=== PATIENT | male | born 1975 | race Caucasian/White ===

== ENCOUNTER 2019-02-26 20:33 | Emergency (ER) | payer BC ==
--- NOTE | 2019-02-26 21:19 | ED ---
Nausea/Vomiting/Diarrhea HPI - General Chief complaint: Nausea/Vomiting/Diarrhea Stated complaint: liver problems Time Seen by Provider: 02/26/19 21:17 Source: patient Mode of arrival: ambulatory Limitations: no limitations - History of Present Illness Initial comments: Nima is a 43 -year-old male with a history of arthritis who presents to the emergency department today for evaluation of generalized body aches abdominal pain nausea and vomiting. Patient reports that he saw his primary care physician a couple of weeks ago and was advised that his liver enzymes were elevated and he needed to stop taking Tylenol and Motrin, he was then referred to rheumatology. He was evaluated by rheumatology last week, reports he had multiple vials of blood drawn for multiple tests, was given steroid injections in both his hands and feet and a short course of oral steroids. He reports he felt better transiently but has developed persistent body aches, nausea and vomiting. He became concerned due to his previously elevated liver enzymes came to the ER for evaluation. Patient denies any fevers chills chest pain or shortness of breath. - Related Data Home Medications Medication Instructions Recorded Confirmed ALPRAZolam [Xanax] 0.5 mg PO DAILY PRN 02/26/19 02/26/19 Celecoxib [CeleBREX] 200 mg PO DAILY 02/26/19 02/26/19 Pantoprazole [Protonix] 40 mg PO BID 02/26/19 02/26/19 Previous Rx's Medication Instructions Recorded Ondansetron [Zofran ODT] 4 mg PO Q8HR #12 tab 02/26/19 Allergies Allergy/AdvReac Type Severity Reaction Status Date / Time No Known Allergies Allergy Verified 02/26/19 21:27 Review of Systems ROS Statement: Those systems with pertinent positive or pertinent negative responses have been documented in the HPI. ROS Other: All systems not noted in ROS Statement are negative. Past Medical History Past Medical History: Hyperlipidemia, Hypertension Additional Past Medical History / Comment(s): Diverticulits History of Any Multi-Drug Resistant Organisms: None Reported Past Surgical History: Orthopedic Surgery Past Psychological History: No Psychological Hx Reported Smoking Status: Current every day smoker Past Alcohol Use History: Occasional Past Drug Use History: None Reported General Exam - General Exam Comments Initial Comments: Physical Exam GENERAL: Patient is well-developed and well-nourished. Patient is nontoxic and well- hydrated and is in no distress. HENT: Normocephalic, Atraumatic. EYES: PERRL, EOMI PULMONARY: Unlabored respirations. No audible rales rhonchi or wheezing was noted. CARDIOVASCULAR: There is a regular rate and rhythm without any murmurs gallops or rubs. ABDOMEN: Soft and nontender with normal bowel sounds. SKIN: Skin is clear with no lesions or rashes and otherwise unremarkable. : Deferred NEUROLOGIC: Patient is alert and oriented x3. Moving all extremities spontaneously MUSCULOSKELETAL: Normal extremities with adequate strength and full range of motion. No lower extremity swelling or edema. No calf tenderness. PSYCHIATRIC: Normal psychiatric evaluation Limitations: no limitations Course Vital Signs 02/26/19 02/26/19 02/27/19 20:58 23:45 00:20 Temperature 98.2 F 97.1 F L Pulse Rate 66 70 52 L Respiratory 18 16 16 Rate Blood Pressure 145/94 141/87 117/73 O2 Sat by Pulse 99 100 95 Oximetry Medical Decision Making - Medical Decision Making The patient was seen and evaluated history is obtained from patient Labs and imaging ordered IV fluids were ordered Anti-inflammatories ordered for pain Labs resulted with no significant abnormalities, there is no transaminitis Normal kidney function Results were discussed with patient who expresses relief. At this time patient's comfortable with plan for discharge home and follow up with rheumat ology. All questions pertaining care were answered return parameters discussed patient discharged home in stable condition. - Lab Data Result diagrams: 02/26/19 21:34 02/26/19 21:34 Lab Results 02/26/19 02/26/19 02/26/19 Range/Units 21:34 21:34 22:09 WBC 7.7 (3.8-10.6) k/uL RBC 4.40 (4.30-5.90) m/uL Hgb 14.1 (13.0-17.5) gm/dL Hct 42.3 (39.0-53.0) % MCV 96.3 (80.0-100.0) fL MCH 32.2 (25.0-35.0) pg MCHC 33.4 (31.0-37.0) g/dL RDW 14.9 (11.5-15.5) % Plt Count 264 (150-450) k/uL Neutrophils % 60 % Lymphocytes % 28 % Monocytes % 8 % Eosinophils % 2 % Basophils % 0 % Neutrophils # 4.6 (1.3-7.7) k/uL Lymphocytes # 2.1 (1.0-4.8) k/uL Monocytes # 0.6 (0-1.0) k/uL Eosinophils # 0.2 (0-0.7) k/uL Basophils # 0.0 (0-0.2) k/uL Sodium 141 (137-145) mmol/L Potassium 4.3 (3.5-5.1) mmol/L Chloride 108 H (98-107) mmol/L Carbon Dioxide 26 (22-30) mmol/L Anion Gap 7 mmol/L BUN 16 (9-20) mg/dL Creatinine 0.87 (0.66-1.25) mg/dL Est GFR (CKD-EPI)AfAm >90 (>60 ml/min/1.73 sqM) Est GFR (CKD-EPI)NonAf >90 (>60 ml/min/1.73 sqM) Glucose 124 H (74-99) mg/dL Calcium 9.4 (8.4-10.2) mg/dL Total Bilirubin 0.4 (0.2-1.3) mg/dL AST 46 (17-59) U/L ALT 54 (21-72) U/L Alkaline Phosphatase 59 (38-126) U/L Total Protein 6.6 (6.3-8.2) g/dL Albumin 4.1 (3.5-5.0) g/dL Amylase 46 (30-110) U/L Lipase 102 (23-300) U/L Urine Color Yellow Urine Appearance Clear (Clear) Urine pH 6.0 (5.0-8.0) Ur Specific Pavo 1.033 (1.001-1.035) Urine Protein Trace H (Negative) Urine Glucose (UA) Negative (Negative) Urine Ketones Negative (Negative) Urine Blood Negative (Negative) Urine Nitrite Negative (Negative) Urine Bilirubin Negative (Negative) Urine Urobilinogen 3.0 (<2.0) mg/dL Ur Leukocyte Esterase Small H (Negative) Urine RBC 1 (0-5) /hpf Urine WBC 4 (0-5) /hpf Urine Mucus Moderate H (None) /hpf Disposition Clinical Impression: Nausea and vomiting Disposition: HOME SELF-CARE Condition: Stable Instructions (If sedation given, give patient instructions): Acute Nausea and Vomiting (ED) Prescriptions: Ondansetron [Zofran ODT] 4 mg PO Q8HR #12 tab Is patient prescribed a controlled substance at d/c from ED?: No Referrals: Jerod Harrison DO [Primary Care Provider] - 1-2 days
[2019-02-26] MEDS ORDERED: KETOROLAC 30 MG/ML 1 ML VIAL IVP STA (21:46)
[2019-02-26] MEDS ORDERED: ONDANSETRON 4 MG/2 ML VIAL IVP STA (21:46)
[2019-02-26] MEDS ORDERED: SODIUM CHLORIDE 0.9% 1,000 ML IV STA (21:46)
[2019-02-26 22:05] LABS: Basophils % (A) 0 %; Eosinophils # (A) 0.2 k/uL (0-0.7); Eosinophils % (A) 2 %; HCT 42.3 % (39.0-53.0); HGB 14.1 gm/dL (13.0-17.5); Lymphocytes # (A) 2.1 k/uL (1.0-4.8); Lymphocytes % (A) 28 %; MCH 32.2 pg (25.0-35.0); MCHC 33.4 g/dL (31.0-37.0); MCV 96.3 fL (80.0-100.0); Monocytes # (A) 0.6 k/uL (0-1.0); Monocytes % (A) 8 %; Neutrophils # (A) 4.6 k/uL (1.3-7.7); Neutrophils % (A) 60 %; Platelet Count 264 k/uL (150-450); RDW 14.9 % (11.5-15.5); WBC 7.7 k/uL (3.8-10.6)
[2019-02-26 22:13] LABS: ALT 54 U/L (21-72); AST 46 U/L (17-59); African American GFR (CKD) >90 (>60 ml/min/1.73 sqM); Albumin 4.1 g/dL (3.5-5.0); Alkaline Phosphatase 59 U/L (38-126); Amylase 46 U/L (30-110); Anion Gap 7 mmol/L; Blood Urea Nitrogen 16 mg/dL (9-20); Calcium 9.4 mg/dL (8.4-10.2); Carbon Dioxide 26 mmol/L (22-30); Chloride 108 mmol/L (98-107); Glucose 124 mg/dL (74-99); Non-African American GFR(CKD) >90 (>60 ml/min/1.73 sqM); Potassium 4.3 mmol/L (3.5-5.1); Sodium 141 mmol/L (137-145); Total Bilirubin 0.4 mg/dL (0.2-1.3); Total Protein 6.6 g/dL (6.3-8.2)
[2019-02-26 22:31] LABS: Appearance,Urine Clear (Clear); Bilirubin,Urine Negative (Negative); Blood,Urine Negative (Negative); Color,Urine Yellow; Glucose,Urine (UA) Negative (Negative); Ketones,Urine Negative (Negative); Leukocyte Esterase,Urine Small (Negative); Mucus,Urine Moderate /hpf; Nitrite,Urine Negative (Negative); Protein,Urine Trace (Negative); RBC,Urine 1 /hpf (0-5); Specific Gravity,Urine 1.033 (1.001-1.035); WBC,Urine 4 /hpf (0-5)
--- NOTE | 2019-02-26 23:35 | US ---
EXAM: US Abdomen Complete CLINICAL HISTORY: abdominal pain TECHNIQUE: Real-time ultrasound of the abdomen with image documentation. COMPARISON: No relevant prior studies available. FINDINGS: Liver: 16.1 cm. Unremarkable. No mass. Simple hepatic cyst noted right middle lobe measuring 1.6 x 1.0 x 1.2 cm No intrahepatic bile duct dilation. Gallbladder: Gallbladder is contracted. No gallstones. Common bile duct: Not visualized. Obscured by bowel gas Pancreas: Obscured by bowel gas. Kidneys: Unremarkable. No stones. No solid mass. No hydronephrosis. Spleen: Unremarkable. No splenomegaly. Aorta: Unremarkable. No aneurysm. Inferior vena cava: Obscured by bowel gas. IMPRESSION: Unremarkable abdominal ultrasound
[2019-02-26 23:46] VITALS: RESP 16
[2019-02-27 00:29] VITALS: BP 117/73; PULSE 52; TEMP 97.1
== END 2019-02-27 00:20 | disposition home or self-care (01) ==
LOC: EC 20:33
DX: R11.2 Nausea with vomiting, unspecified (principal); R19.7 Diarrhea, unspecified; R10.9 Unspecified abdominal pain; M19.90 Unspecified osteoarthritis, unspecified site; F17.200 Nicotine dependence, unspecified, uncomplicated; Z87.19 Personal history of other diseases of the digestive system; Z79.1 Long term (current) use of non-steroidal anti-inflammatories (NSAID); Z79.899 Other long term (current) drug therapy
CPT/HCPCS: 99284; 96374; 96375; 96361; 36415; 80053; 82150; 83690; 85025; 81001; 76700; J2405; J1885

== ENCOUNTER 2020-01-02 10:17 | Emergency (ER) | payer BC ==
[2020-01-02] MEDS ORDERED: DIPH,PERTUS(ACELL)TETVAC-LF 0.5 ML VIAL IM ONE (10:28)
[2020-01-02] MEDS ORDERED: fentaNYL (PF) 50 MCG/ML 2 ML AMP IVP STA ×2 (10:32→10:54)
[2020-01-02 10:34] LABS: Basophils # (A) 0.1 k/uL (0-0.2); Basophils % (A) 1 %; Eosinophils # (A) 0.3 k/uL (0-0.7); Eosinophils % (A) 3 %; HCT 49.1 % (39.0-53.0); HGB 15.8 gm/dL (13.0-17.5); Lymphocytes # (A) 2.1 k/uL (1.0-4.8); Lymphocytes % (A) 23 %; MCH 31.1 pg (25.0-35.0); MCHC 32.2 g/dL (31.0-37.0); MCV 96.3 fL (80.0-100.0); Mean Platelet Volume 7.4; Monocytes # (A) 0.6 k/uL (0-1.0); Monocytes % (A) 6 %; Neutrophils # (A) 5.9 k/uL (1.3-7.7); Neutrophils % (A) 65 %; Platelet Count 236 k/uL (150-450); RDW 13.6 % (11.5-15.5); WBC 9.1 k/uL (3.8-10.6)
--- NOTE | 2020-01-02 10:35 | XR ---
EXAMINATION TYPE: XR chest 1V portable DATE OF EXAM: 01/02/2020 HISTORY: trauma. REFERENCE: NONE. FINDINGS: The heart is mildly prominent. Lungs are clear. Pleural space are clear. I do not see evide nce of pneumothorax. IMPRESSION: MILD CARDIOMEGALY.
--- NOTE | 2020-01-02 10:36 | XR ---
EXAMINATION TYPE: XR pelvis AP view , ONE VIEW DATE OF EXAM ORDERED: 01/02/2020 HISTORY: Trauma. COMPARISON: None. FINDINGS: No fractures identified. Both hips are nonspherical. IMPRESSION: 1. NO ACUTE OSSEOUS LESION. 2. PLEASE CORRELATE CLINICALLY FOR FEMOROACETABULAR IMPINGEMENT SYNDROME.
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
[2020-01-02 10:48] LABS: ALT 23 U/L (4-49); AST 29 U/L (17-59); African American GFR (CKD) >90 (>60 ml/min/1.73 sqM); Alcohol <10 mg/dL; Alkaline Phosphatase 60 U/L (38-126); Amylase 33 U/L (30-110); Anion Gap 5 mmol/L; Blood Urea Nitrogen 14 mg/dL (9-20); Calcium 9.6 mg/dL (8.4-10.2); Carbon Dioxide 25 mmol/L (22-30); Chloride 109 mmol/L (98-107); Glucose 110 mg/dL (74-99); Non-African American GFR(CKD) >90 (>60 ml/min/1.73 sqM); Potassium 4.5 mmol/L (3.5-5.1); Sodium 139 mmol/L (137-145); Total Bilirubin 0.7 mg/dL (0.2-1.3); Total Protein 6.6 g/dL (6.3-8.2)
[2020-01-02 10:50] LABS: INR 0.9 (<1.2); Prothrombin Time 9.6 sec (9.0-12.0)
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
[2020-01-02] MEDS ORDERED: fentaNYL (PF) 50 MCG/ML 2 ML AMP IVP PRN (10:53)
[2020-01-02 10:57] LABS: Creatine Kinase 140 U/L (55-170)
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
[2020-01-02 11:10] LABS: Creatine Kinase MB 1.5 ng/mL (0.0-2.4); Troponin I <0.012 ng/mL (0.000-0.034)
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
[2020-01-02] MEDS ORDERED: KETOROLAC 30 MG/ML 1 ML VIAL IVP STA (14:19)
[2020-01-02 14:53] LABS: Appearance,Urine Clear (Clear); Bilirubin,Urine Negative (Negative); Blood,Urine Negative (Negative); Color,Urine Light Yellow; Glucose,Urine (UA) Negative (Negative); Ketones,Urine Negative (Negative); Leukocyte Esterase,Urine Negative (Negative); Nitrite,Urine Negative (Negative); Protein,Urine Negative (Negative); Urobilinogen,Urine <2.0 mg/dL (<2.0)
[2020-01-02 15:05] LABS: Urn Cannabinoid Scrn Detected (NotDetected)
[2020-01-02 15:06] LABS: Amphetamine Screen,Urine Not Detected (NotDetected); Barbiturate Screen,Urine Not Detected (NotDetected); Benzodiazepines Screen,Urine Detected (NotDetected); Cocaine Screen,Urine Not Detected (NotDetected); Methadone Screen, Urine Not Detected (NotDetected); Opiate Screen,Urine Not Detected (NotDetected); Oxycodone Screen, Urine Not Detected (NotDetected); Phencyclidine Screen,Urine Not Detected (NotDetected); Tricyclic Antidepressant,Urine Not Detected (NotDetected)
[2020-01-02 15:24] LABS: Specific Gravity,Urine >1.050 (1.001-1.035)
== END 2020-01-02 15:19 | disposition home or self-care (01) ==
LOC: EC 10:17
DX: R07.89 Other chest pain (principal); S00.81XA Abrasion of other part of head, initial encounter; S80.811A Abrasion, right lower leg, initial encounter; F17.200 Nicotine dependence, unspecified, uncomplicated; W30.9XXA Contact with unspecified agricultural machinery, initial encounter; Y92.89 Other specified places as the place of occurrence of the external cause
CPT/HCPCS: 36415; 86900; 86901; 80053; 82150; 82550; 82553; 83605; 83690; 84484; 85025; 85610; 85730; 86850; 81003; 80306; 80320; 72170; 71045; 72125; 70450; 71260; 74177; 90715; 99284; 96374; 96375; 90471; J3010; J1885; Q9967